=== PATIENT | male | born 1995 | race Hispanic/Latino ===

== ENCOUNTER 2018-01-15 22:36 | Inpatient (IN) | payer OTHER ==
[~2018-01-15] VITALS: Ht 167.6 cm; Wt 81.6 kg
[2018-01-15] MEDS ORDERED: PANTOPRAZOLE 40 MG 10ML VIAL IV STA (23:25)
[2018-01-15] MEDS ORDERED: MORPHINE SULFATE 2 MG/ML SYR IV STA (23:25)
[2018-01-15] MEDS ORDERED: SODIUM CHLORIDE 0.9% 1000ML 1,000 ML IV STA (23:25)
[2018-01-15] MEDS ORDERED: ONDANSETRON HCL INJ 2 MG/ML VIAL IV STA (23:25)
[2018-01-15 23:33] LABS: BASOPHILS % 0.2 % (0.0-1.0); HEMATOCRIT 48.7 % (38.2-49.6); HEMOGLOBIN 17.3 g/dL (14.0-18.0); LYMPHOCYTES # (AUTO) 1.1 (1.0-3.2); LYMPHOCYTES % 4.3 % (18.0-39.1); MEAN CORPUSCULAR HGB CONC 35.5 g/dL (31-35); MEAN CORPUSCULAR VOLUME 84.4 fL (81-99); MONOCYTES # (AUTO) 1.5 (0.2-0.8); MONOCYTES % 6.1 % (4.4-11.3); NEUTROPHILS # (AUTO) 21.9 (2.1-6.9); NEUTROPHILS % 88.4 % (38.7-80.0); PLATELET COUNT 173 x10e3/uL (140-360); RED BLOOD COUNT 5.77 x10e6/uL (4.3-5.7); RED CELL DISTRIBUTION WIDTH 12.9 % (11.7-14.4)
[2018-01-15 23:36] LABS: INR 1.24; PROTHROMBIN TIME 14.7 seconds (11.9-14.5)
[2018-01-15 23:37] LABS: PARTIAL THROMBOPLASTIN TIME 26.4 seconds (23.8-35.5)
[2018-01-15 23:38] LABS: BILIRUBIN,URINE NEGATIVE (NEGATIVE); CLARITY,URINE CLEAR (CLEAR); COLOR,URINE YELLOW (YELLOW); KETONES,URINE 1+ (NEGATIVE); LEUKOCYTE ESTERASE ,URINE NEGATIVE (NEGATIVE); NITRITE,URINE NEGATIVE (NEGATIVE); PROTEIN,URINE DIPSTICK 1+ (NEGATIVE); URINE UROBILINOGEN 0.2 mg/dL (0.2 - 1)
[2018-01-15 23:48] LABS: ALANINE AMINOTRANSFERASE 25 IU/L (0-55); ALBUMIN 4.5 g/dL (3.5-5.0); ALBUMIN/GLOBULIN RATIO 1.3 (0.8-2.0); ALKALINE PHOSPHATASE 63 IU/L (40-150); AMYLASE 49 U/L (25-125); ANION GAP 16.1 mmol/L (8-16); BLOOD UREA NITROGEN 14 mg/dL (7-26); BUN/CREATININE RATIO 12 (6-25); CARBON DIOXIDE 21 mmol/L (22-29); CHLORIDE 104 mmol/L (98-107); CREATINE KINASE 116 IU/L (30-200); CREATININE, SERUM 1.15 mg/dL (0.72-1.25); EST GLOMERULAR FILTRATION RATE > 60 ML/MIN (60-); GLUCOSE 117 mg/dL (74-118); LIPASE 13 U/L (8-78); MAGNESIUM 1.2 MG/DL (1.3-2.1); POTASSIUM 3.1 mmol/L (3.5-5.1); SODIUM 138 mmol/L (136-145)
[2018-01-16 00:11] LABS: BACTERIA,URINE FEW /HPF; EPITHELIAL CELLS,URINE FEW /LPF; MUCUS,URINE MANY (RARE); RBC,URINE 0-5 /HPF (0-5); WBC,URINE (MAN) 0-5 /HPF (0-5)
--- NOTE | 2018-01-16 00:18 | Diagnostic Imaging Report ---
CHEST SINGLE (PORTABLE), 01/15/2018 11:25 PM Technique: CHEST SINGLE (PORTABLE) Comparison: None available. Clinical history: Abdominal pain, nausea, vomiting Findings: Unremarkable portable appearance of the heart, mediastinum, lungs and pleural spaces. Impression: 1. Lines/Tubes: None 2. No acute abnormality. Signed by: Dr Cecily Montilla MD on 01/16/2018 12:15 AM
[2018-01-16] MEDS ORDERED: SODIUM CHLORIDE 0.9% 1000ML 1,000 ML IV STA (01:10)
[2018-01-16] MEDS ORDERED: LEVOFLOXACIN 500MG/D5W 100ML 100 ML IV SCH (01:15)
[2018-01-16] MEDS ORDERED: MAGNESIUM SULFATE 2GM/50ML 50 ML IV ONE (01:15)
[2018-01-16] MEDS ORDERED: IOPAMIDOL 370 MG/ML 200 ML INFUS..BTL INJ ONE (01:39)
[2018-01-16] MEDS ORDERED: SODIUM CHLORIDE 0.9% 50ML 50 ML ONE (01:39)
--- NOTE | 2018-01-16 01:44 | Diagnostic Imaging Report ---
EXAM: CT ABDOMEN/PELVIS W DATE: 01/16/2018 11:25 PM INDICATION: \S\ALICIA/RUQ ABD PAIN, N/V \[id number] \S\0040 COMPARISON: None TECHNIQUE: The abdomen and pelvis were scanned using a multidetector helical scanner. Coronal and sagittal reformations were obtained. Routine protocol performed. IV Contrast: 100 ml Isovue 300/370 FINDINGS: LOWER THORAX: No consolidations LIVER/BILIARY: No masses. No ductal dilatation. GALLBLADDER: Unremarkable SPLEEN: Unremarkable PANCREAS: Unremarkable ADRENALS: No nodules KIDNEYS: Symmetric perfusion. No enhancing masses. No hydronephrosis. GI TRACT: Fluid-filled colon and rectum with mild mucosal hyperenhancement. No evidence of obstruction. Appendectomy. VESSELS: Unremarkable PERITONEUM/RETROPERITONEUM: No free air or fluid LYMPH NODES: No lymphadenopathy REPRODUCTIVE ORGANS/BLADDER: Unremarkable SOFT TISSUES: Unremarkable BONES: Mild degenerative changes at T11-12. No acute findings. IMPRESSION: Proctocolitis, likely infectious or inflammatory. Signed by: Dr Cecily Montilla MD on 01/16/2018 1:41 AM
[2018-01-16] MEDS ORDERED: KCL 20MEQ/.9 SOD CHL 1,000 ML IV ONE (02:15)
[2018-01-16] MEDS ORDERED: POTASSIUM CHLORIDE 10MEQ/100ML 100 ML IV SCH (02:45)
[2018-01-16] MEDS ORDERED: PROMETHAZINE HCL (IM) 25 MG/ML VIAL IV PRN (02:45)
[2018-01-16] MEDS ORDERED: PROMETHAZINE 12.5MG/ NACL 0.9% 12.5 MG/50 ML BAG IV PRN (03:15)
[2018-01-16] MEDS: METRONIDAZOLE 500MG/NS 100ML 100 ML IV SCH ×5 (03:44→22:14)
[2018-01-16] MEDS ORDERED: ACETAMINOPHEN 1000 MG/100 ML IV PRN (05:30)
[2018-01-16] MEDS ORDERED: POTASSIUM CHLORIDE 20MEQ/100ML 100 ML ONE (06:27)
[2018-01-16] MEDS: SODIUM CHLORIDE 0.9% 1000ML 1,000 ML IV SCH ×4 (06:38→22:42)
[2018-01-16] MEDS ORDERED: POTASSIUM CHLORIDE 10MEQ/100ML 100 ML ONE (08:42)
[2018-01-16] MEDS: MORPHINE SULFATE 2 MG/ML SYR IV PRN ×4 (09:10→21:00)
[2018-01-16 11:25] VITALS: BP 121/72
[2018-01-16 12:30] VITALS: BP 121/72
[2018-01-16] MEDS: POTASSIUM CHLORIDE 10MEQ/100ML 100 ML IV SCH ×2 (15:46→17:36)
[2018-01-16 17:00] VITALS: BP 121/72
[2018-01-16] MEDS ORDERED: MAGNESIUM SULFATE 2GM/50ML 200 ML IV ONE (19:30)
[2018-01-16] MEDS ORDERED: POTASSIUM CHLORIDE 20 MEQ TAB CR PO ONE (19:50)
[2018-01-16 20:00] VITALS: BP 157/92
--- NOTE | 2018-01-16 20:59 | History and Physical ---
HISTORY OF PRESENT ILLNESS: Mr[age] male with no past medical history, apparently he when he started having vomiting, diarrhea, and dizziness, which did not go away. REVIEW OF SYSTEMS: CARDIOVASCULAR: No chest pain, no palpitations. RESPIRATORY: No shortness of breath, no cough. GASTROINTESTINAL: Nausea, vomiting, diarrhea, abdominal pain. GENITOURINARY: No frequency, no dysuria. ALLERGIES: HE IS ALLERGIC TO PENICILLIN. SOCIAL HISTORY: He does not smoke, he does not drink. PAST MEDICAL HISTORY: No significant medical history. PHYSICAL EXAMINATION: VITAL SIGNS: Blood pressure 121/72, temperature 98.1, heart rate 96 per minute, respiratory rate is 16 per minute, oxygen saturation of 100%. LABORATORY DATA: On the BMP: Sodium 138, potassium 3.1, chloride 108, CO2 21, BUN 14, creatinine 1.15, glucose 117. On the CBC: White blood count 24.7, hemoglobin 17.3, hematocrit of 48.7, platelet count 173,000. PT 14.7, PTT 26.4, INR 1.24. AST 19, ALT 25, total bilirubin is 1.7, alkaline phosphatase is 63. FINAL IMPRESSION: 1. Vomiting. 2. Diarrhea. 3. Colitis. PLAN OF TREATMENT: We are going to order stool for C. difficile and cultures and sensitivity. We are going to continue with Levaquin 500 mg IV piggyback daily, metronidazole 500 mg IV piggyback q.6h., sodium chloride 150 mL an hour, morphine 4 mg IV q.4h. as needed, Zofran 4 mg IV q.4h. as needed for vomiting, Phenergan 25 mg IV as needed for vomiting, Tylenol 100 mg q.6h., Imodium 2 mg every 4 hours as needed for diarrhea. We are going to consult Dr. Renny Armenta. We are going to continue with IV fluids and follow the culture report. Job#: [id number]
[2018-01-16] MEDS: ONDANSETRON HCL INJ 2 MG/ML VIAL IV PRN (21:00)
[2018-01-16 21:20] VITALS: BP 157/92
--- NOTE | 2018-01-16 21:25 | History and Physical ---
ADDENDUM He also had hypomagnesemia. Magnesium has been replaced. We will recheck the magnesium, CBC and CMP tomorrow. Consult Dr. Renny Armenta for gastroenterology. Liquid diet as tolerated. Job#: [id number]
[2018-01-16] MEDS ORDERED: MAGNESIUM SULF 1GRAM/DEXTROSE 200 ML IV ONE (22:00)
[2018-01-16] MEDS ORDERED: BISACODYL 5 MG TAB EC PO ONE ×3 (22:15→23:30)
[2018-01-16] MEDS ORDERED: CITRATE OF MAGNESIA 300ML BOTTLE PO ONE (23:00)
[2018-01-17] VITALS (12 sets, daily range): BP systolic 116–156; BP diastolic 63–89
[2018-01-17] MEDS ORDERED: BISACODYL 5 MG TAB EC PO ONE
[2018-01-17] MEDS: MORPHINE SULFATE 2 MG/ML SYR IV PRN ×5 (01:42→23:33)
[2018-01-17] MEDS: ONDANSETRON HCL INJ 2 MG/ML VIAL IV PRN ×3 (01:42→12:31)
[2018-01-17] MEDS: METRONIDAZOLE 500MG/NS 100ML 100 ML IV SCH ×4 (03:57→22:12)
[2018-01-17] MEDS ORDERED: CITRATE OF MAGNESIA 300ML BOTTLE PO ONE (05:00)
[2018-01-17] MEDS: LEVOFLOXACIN 500MG/D5W 100ML 100 ML IV SCH (05:25)
[2018-01-17 05:50] LABS: BASOPHILS # (AUTO) 0.1 (0.0-0.1); BASOPHILS % 0.4 % (0.0-1.0); EOSINOPHILS # (AUTO) 0.1 (0.0-0.4); EOSINOPHILS % 0.8 % (0.0-6.0); HEMATOCRIT 44.9 % (38.2-49.6); HEMOGLOBIN 15.2 g/dL (14.0-18.0); LYMPHOCYTES # (AUTO) 1.5 (1.0-3.2); LYMPHOCYTES % 12.8 % (18.0-39.1); MEAN CORPUSCULAR HEMOGLOBIN 29.8 pg (28-32); MEAN CORPUSCULAR HGB CONC 33.9 g/dL (31-35); MONOCYTES # (AUTO) 0.9 (0.2-0.8); MONOCYTES % 7.6 % (4.4-11.3); NEUTROPHILS # (AUTO) 9.4 (2.1-6.9); NEUTROPHILS % 77.8 % (38.7-80.0); PLATELET COUNT 151 x10e3/uL (140-360); RED CELL DISTRIBUTION WIDTH 13.2 % (11.7-14.4)
[2018-01-17 06:09] LABS: ALANINE AMINOTRANSFERASE 19 IU/L (0-55); ALBUMIN 3.5 g/dL (3.5-5.0); ALBUMIN/GLOBULIN RATIO 1.1 (0.8-2.0); ALKALINE PHOSPHATASE 56 IU/L (40-150); ANION GAP 14.1 mmol/L (8-16); BLOOD UREA NITROGEN 8 mg/dL (7-26); BUN/CREATININE RATIO 8 (6-25); CALCIUM 9.1 mg/dL (8.4-10.2); CARBON DIOXIDE 22 mmol/L (22-29); CHLORIDE 108 mmol/L (98-107); CREATININE, SERUM 0.95 mg/dL (0.72-1.25); EST GLOMERULAR FILTRATION RATE > 60 ML/MIN (60-); GLUCOSE 100 mg/dL (74-118); MAGNESIUM 2.3 MG/DL (1.3-2.1); POTASSIUM 4.1 mmol/L (3.5-5.1); SODIUM 140 mmol/L (136-145)
[2018-01-17] MEDS: SODIUM CHLORIDE 0.9% 1000ML 1,000 ML IV SCH ×3 (07:16→17:29)
[2018-01-17 15:58] LABS: WBC,FECAL (FECAL LACTOFERRIN) POSITIVE (NEGATIVE)
--- NOTE | 2018-01-17 16:16 | Operative Report ---
DATE OF PROCEDURE: January 17, 2018 REFERRING PHYSICIAN: Dr Kerline Cristobal. PROCEDURE PERFORMED: Colonoscopy with polypectomy and biopsy. INDICATIONS FOR COLONOSCOPY: Bloody diarrhea. MEDICATION: Patient was done under MAC. Please see anesthesiologist's note. PROCEDURE: With patient in the left lateral decubitus position, flexible fiberoptic Olympus colonoscope was inserted into the rectum with ease and advanced all the way to the cecum. The colon was diffusely inflamed. The ileocecal valve was intubated, and the scope was advanced into the terminal ileum which was ulcerated. Biopsies were obtained. The scope was then withdrawn back into the colon. It was then withdrawn slowly and the mucosa overlying the ascending, transverse, descending, sigmoid and rectum revealed some patchy intense erythema and low-grade to moderate edema and biopsies were obtained. One polyp was hot biopsied from the rectum. The scope was then retroflexed into the distal rectum and the area around the dentate line appeared to be within normal limits. The scope was then straightened out. The scope was subsequently withdrawn after securing an adequate stool specimen that was sent for the appropriate stool studies. Patient tolerated procedure well. IMPRESSION: 1. Ulcerated terminal ileum. 2. Colitis, diffuse. Random biopsies obtained. 3. Rectal polyp hot biopsied. PLAN: Follow up histology. Initiate full liquid diet and follow up stool studies. Job#: [id number] GH cc:KERLINE CRISTOBAL MD
[2018-01-17] MEDS ORDERED: MIDAZOLAM HCL 2 MG/2 ML VIAL ONE (16:35)
[2018-01-17] MEDS ORDERED: FENTANYL CITRATE/PF 100MCG/2 ML INJ ONE (16:35)
[2018-01-17] MEDS ORDERED: KETAMINE HCL INJ 50 MG/ML 10 ML VIAL ONE (16:35)
--- NOTE | 2018-01-17 17:33 | Progress Note ---
DATE: January 17, 2018 INTERNAL MEDICINE PROGRESS NOTE SUBJECTIVE: He is status post colonoscopy, feeling better but drowsy after the colonoscopy. PHYSICAL EXAM: VITAL SIGNS: Blood pressure 149/68, temperature 97.9, heart rate is 103 per minute, respiratory rate is 18 per minute, oxygen saturation 100%. ABDOMEN: Soft. No tenderness, no distention, no visceromegaly. EXTREMITIES: Show no evidence of cyanosis, edema or trauma. BLOOD WORK: We have a BMP: Sodium 140, potassium 4.1, chloride 108, CO2 22, BUN 8, creatinine 0.95, glucose 100. On the CBC: White blood count 12.0, hemoglobin 15.2, hematocrit 44.9, platelet count 151,000. PT 14.7, INR 1.24, PTT 26.4. AST 18, ALT 19, total bilirubin 0.6, alkaline phosphatase 56. FINAL IMPRESSION: 1. Acute gastroenteritis. 2. Colitis. 3. Leukocytosis. PLAN OF TREATMENT: Continue IV fluids. Continue Levaquin 500 mg IV piggyback daily. Metronidazole 500 mg IV q.6 h. Continue morphine 4 mg IV q.4 h. as needed. Zofran 4 mg IV q.4 h. as needed. Promethazine 12.5 mg IV q.4 h. as needed. We are going to repeat a CBC and BMP tomorrow. Stool for C. difficile negative, and we are waiting for stool for culture and ova and parasites. Dr. Renny Armenta, the lawyer criminal, is on the case. We are going to upgrade the diet to a regular diet. Job#: [id number] EV
[2018-01-17] MEDS ORDERED: HYOSCYAMINE SULFATE 0.5 MG/ML AMP ONE (17:48)
[2018-01-17] MEDS ORDERED: LIDOCAINE HCL 2% LOCAL INJ 5 ML SDV VIAL INJ ONE (17:48)
[2018-01-17] MEDS ORDERED: PROPOFOL IV EMULSION 10 MG/ML 50 ML VIAL ONE (17:48)
[2018-01-17] MEDS ORDERED: GLUCAGON FOR INJ 1 MG VIAL ONE (17:48)
[2018-01-18] VITALS (7 sets, daily range): BP systolic 114–140; BP diastolic 62–80
[2018-01-18] MEDS: SODIUM CHLORIDE 0.9% 1000ML 1,000 ML IV SCH ×3 (02:56→17:24)
[2018-01-18] MEDS: METRONIDAZOLE 500MG/NS 100ML 100 ML IV SCH ×3 (03:53→17:24)
[2018-01-18] MEDS: LEVOFLOXACIN 500MG/D5W 100ML 100 ML IV SCH (05:08)
[2018-01-18 06:12] LABS: BASOPHILS # (AUTO) 0.1 (0.0-0.1); BASOPHILS % 0.7 % (0.0-1.0); EOSINOPHILS # (AUTO) 0.1 (0.0-0.4); EOSINOPHILS % 1.9 % (0.0-6.0); HEMATOCRIT 44.9 % (38.2-49.6); HEMOGLOBIN 14.9 g/dL (14.0-18.0); LYMPHOCYTES # (AUTO) 1.9 (1.0-3.2); LYMPHOCYTES % 25.7 % (18.0-39.1); MEAN CORPUSCULAR HEMOGLOBIN 29.4 pg (28-32); MEAN CORPUSCULAR HGB CONC 33.2 g/dL (31-35); MEAN CORPUSCULAR VOLUME 88.6 fL (81-99); MONOCYTES # (AUTO) 0.7 (0.2-0.8); NEUTROPHILS # (AUTO) 4.5 (2.1-6.9); NEUTROPHILS % 61.6 % (38.7-80.0); PLATELET COUNT 176 x10e3/uL (140-360); RED BLOOD COUNT 5.07 x10e6/uL (4.3-5.7); RED CELL DISTRIBUTION WIDTH 13.2 % (11.7-14.4)
[2018-01-18 06:35] LABS: ANION GAP 13.1 mmol/L (8-16); BLOOD UREA NITROGEN 10 mg/dL (7-26); BUN/CREATININE RATIO 10 (6-25); CARBON DIOXIDE 24 mmol/L (22-29); CHLORIDE 109 mmol/L (98-107); CREATININE, SERUM 0.97 mg/dL (0.72-1.25); EST GLOMERULAR FILTRATION RATE > 60 ML/MIN (60-); GLUCOSE 98 mg/dL (74-118); POTASSIUM 4.1 mmol/L (3.5-5.1); SODIUM 142 mmol/L (136-145)
[2018-01-18] MEDS: ONDANSETRON HCL INJ 2 MG/ML VIAL IV PRN (10:29)
[2018-01-18 13:42] LABS: C DIFFICILE TOXIN A&B AMP PROB NEGATIVE (NEGATIVE)
--- NOTE | 2018-01-18 20:01 | Discharge Summary ---
HISTORY OF PRESENT ILLNESS: The patient is 22-year-old male with no past medical history. Apparently he was eating tacos and he started having abdominal pain, vomiting and diarrhea and came to the hospital. He was found to have diffuse colitis. He underwent a colonoscopy done by Dr. Renny Armenta who found an ulcerated terminal ileum, diffuse colitis and rectal polyps. He had biopsy and awaiting on histology. The stool for C. diff. came back negative. The patient's symptoms are completely resolved and he is tolerating the diet. He has no fever and no diarrhea either. Patient is doing well, so he is willing to go home today. He has to follow up with Dr. Renny Armenta as an outpatient for the followup on the biopsies and also follow up with me in a week. PHYSICAL EXAM: HEART: Regular rhythm. No murmur. No extra sounds. LUNGS: Clear bilaterally. ABDOMEN: Soft. EXTREMITIES: Show no evidence of cyanosis, edema or trauma. LABORATORY STUDIES: We have CBC with a white blood count 7.35, hemoglobin 14.9, hematocrit 44.9, platelet count 176,000 and a BMP sodium 142, potassium 4.1, chloride 109, CO2 24, BUN 10, creatinine 0.87, glucose 198, calcium 9.0, magnesium 2.3, total bilirubin 0.6. AST 18, ALT 19, alkaline phosphatase 56. Lipase 13. C. difficile times 2 are negative. Urinalysis pretty much unremarkable. Stool lactoferrin is positive. Occult blood is positive. Blood cultures show no growth for 48 hours. Giardia antigen and ova and parasites still pending. The patient can go home today to follow up with Dr. Renny Armenta. KERLINE CRISTOBAL MD Job#: [id number]
--- NOTE | 2018-01-18 20:04 | Discharge Summary ---
ADDENDUM FINAL IMPRESSION: Pancolitis and ileal ulcer. As I said, the patient is going home today and follow up with Dr. Renny Armenta as an outpatient for follow up on the histology on the colonoscopy and follow up with me in a week. KERLINE CRISTOBAL MD Job#: [id number] GH
== END 2018-01-18 18:25 | disposition home or self-care (01) | DRG 387 ==
LOC: ER 22:36 → ERHOLD 01-16 02:53 → MED/SURG2 01-16 11:23
PROVIDERS: ADMIT Internal Medicine; ATTEND Internal Medicine
PROC: 0DBF8ZX Excision of Right Large Intestine, Via Natural or Artificial Opening Endoscopic, Diagnostic (ICD-10-PCS; 2018-01-17)
PROC: 0DBG8ZX Excision of Left Large Intestine, Via Natural or Artificial Opening Endoscopic, Diagnostic (ICD-10-PCS; 2018-01-17)
PROC: 0DBP8ZX Excision of Rectum, Via Natural or Artificial Opening Endoscopic, Diagnostic (ICD-10-PCS; principal; 2018-01-17 14:55)
PROC: 0DBB8ZX Excision of Ileum, Via Natural or Artificial Opening Endoscopic, Diagnostic (ICD-10-PCS; 2018-01-17 14:55)
DX: K51.00 Ulcerative (chronic) pancolitis without complications (principal); K52.9 Noninfective gastroenteritis and colitis, unspecified; K62.1 Rectal polyp
CPT/HCPCS: 36415; 45380; 45384; 71045; 74177; 80048; 80053; 81001; 82150; 82270; 82550; 82553; 83605; 83630; 83690; 83735; 83993; 84484; 85025; 85610; 85730; 87040; 87045; 87177; 87328; 87493; 88305; 93005; 96374; 96375; 99284; J1610; J1956; J1980; J2001; J2250; J2270; J2405; J3475; J3480; J7030; Q9967